=== PATIENT | male | born 2000 | race Caucasian/White ===

== ENCOUNTER 2021-09-23 11:49 | Emergency (ER) | payer OTHER, SELFPAY ==
[2021-09-23 12:08] VITALS: BP 118/63; PULSE 83; RESP 16; TEMP 36.8; O2SAT 99
--- NOTE | 2021-09-23 12:08 | ED.ABDPAIN ---
HPI - Abdominal Pain General Chief Complaint: Abdominal Pain Stated Complaint: Abdominal Pain Time Seen by Provider: 09/23/21 12:08 Source: patient and RN notes reviewed History of Present Illness HPI narrative: Patient is a 21-year-old male who presents the urgent care with complaints of diffuse abdominal pain that comes and goes in waves. Patient states that he feels that he has more of an upset stomach and then he feels the waves of pain that last approximately 5 minutes. Patient states that started 3 days ago and he had nausea on the first day but is currently denying of any fever, nausea or vomiting. Patient states he has not ate much in the last 2 days and did have a light bowel movement yesterday. Patient denies of any history of stomach issues in the past. States that he has taken Pepto-Bismol without much relief. Patient has also tried Tums without any relief. No other acute complaints. No acute distress noted. Patient aware of plan of care. Some parts of this dictation were generated by voice recognition software and may contain typographical and/or grammatical inaccuracies. Related Data Allergies Allergy/AdvReac Type Severity Reaction Status Date / Time No Known Allergies Allergy Verified 09/23/21 12:04 Review of Systems Review of Systems: CONSTITUTIONAL: Denies fever, chills, or sweats. EYES: Denies visual changes, redness, or discharge. ENT: Denies rhinorrhea, congestion, sore throat, or otalgia. CARDIOVASCULAR: Denies chest pain, palpitations, or edema. RESPIRATORY: Denies cough or dyspnea. GASTROINTESTINAL: Reports of intermittent abdominal pains without nausea, vomiting or diarrhea GENITOURINARY: Denies dysuria or hematuria. SKIN: Denies rash or itching. MUSCULOSKELETAL: Denies back pain, joint pain, or myalgia. NEUROLOGIC: Denies headache, numbness, or weakness. All other systems reviewed are negative, except as documented in HPI. PMFSH Comments At the time of my signature, I reviewed and agree with the nursing past medical, surgical, social, and family history. There is no relevant family history pertinent to the patient complaint. Exam Narrative: GENERAL: This is a well-nourished, well-developed patient, in no apparent distress. HEAD: normocephalic, atraumatic. EYES: PERRL. Sclera clear/white. Vision is grossly intact. EARS: External ears normal NOSE: External nose normal with no obvious nasal discharge, nares without redness, no rhinorrhea. THROAT: Mucous membranes moist NECK: Neck supple CARDIOVASCULAR: Regular rate and rhythm without murmurs, gallops, or rubs. RESPIRATORY: Clear to auscultation. Breath sounds equal bilaterally. No wheezes, rales, or rhonchi. GASTROINTESTINAL: Abdomen soft, mild diffuse abdominal tenderness, nondistended. Bowel sounds are active. No hepato-splenomegaly, or palpable masses. No guarding. Negative obturator exam SKIN: warm, intact with no suspicious lesions or rash, good texture and turgor. NEURO: awake, alert, and oriented to person, place and time. There were no obvious focal neurologic abnormalities. EXTREMITIES: No clubbing, cyanosis, or edema. Course Vital Signs Vital signs: Vital Signs Temperature 98.3 F 09/23/21 12:08 Pulse Rate 83 09/23/21 12:08 Respiratory Rate 16 09/23/21 12:08 Blood Pressure 118/63 09/23/21 12:08 Pulse Oximetry 99 09/23/21 12:08 Temperature 98.3 F 09/23/21 12:08 Pulse Rate 83 09/23/21 12:08 Respiratory Rate 16 09/23/21 12:08 Blood Pressure 118/63 09/23/21 12:08 Pulse Oximetry 99 09/23/21 12:08 Reviewed MDM - Abdominal Pain MDM Narrative Medical decision making narrative: Advised the patient to use the Bentyl as prescribed. The Bentyl is to help with abdominal spasms/pain. If you do not have any relief with the medication?go to the emergency room for further work-up. Eat a bland diet and increase your water intake for the next 3 to 5 days. If you develop any increase in symptoms associated fev
== END 2021-09-23 12:31 | disposition home or self-care (01) ==
PROVIDERS: Emergency Provider Nurse Practitioner Family
DX: M62.838 Other muscle spasm (principal)
CPT/HCPCS: 99203; G0463